=== PATIENT | female | born 1965 | race Caucasian/White ===

== ENCOUNTER 2022-01-01 15:23 | Emergency (ER) | payer BC, SELFPAY ==
--- NOTE | ~2022-01-01 | CT_ITS ---
EXAMINATION: CT brain wo con DATE: 01/01/2022 17:41 INDICATION: Facial blunt trauma . TECHNIQUE: Computed tomography (CT) of the head was performed without intravenous contrast. The mA wa s adjusted according to patient size. Iterative reconstruction technique was employed. The dose-lengt h product was 605.33 mGy-cm. COMPARISON: None FINDINGS: No acute intracranial hemorrhage or extra-axial fluid collection. No hydrocephalus, mass, or herniation. No acute ischemic infarct. Unremarkable dural venous sinus attenuation. No acute osseous abnormality. The aerated spaces are clear. IMPRESSION: No acute intracranial process. Reviewed, dictated and finalized at location K.
--- NOTE | ~2022-01-01 | CT_ITS ---
EXAMINATION: CT facial & cervical spine wo DATE: 01/01/2022 17:41 INDICATION: Blunt trauma to face TECHNIQUE: Computed tomography (CT) of the maxillofacial region and cervical spine was performed with out intravenous contrast. Automated exposure control and iterative reconstruction technique were empl oyed. The dose-length product was 159.17 mGy-cm. COMPARISON: None FINDINGS: CERVICAL: Vertebral Body Alignment: Reversal lordosis centered at C5-6. Minimal grade 1 anterolisthesis of C2 o n C3 and C4 on C5, presumably on a degenerative basis. Craniocervical and atlantoaxial alignment: Moderate degenerative change. Alignment intact. Osseous structures/fracture: No evidence of a lytic or blastic process in the visualized spine. No e vidence of acute fracture. Cervical soft tissues: The paraspinal soft tissues planes are maintained. Biapical pleural scarring. Degenerative changes: Multilevel severe degenerative disc disease and facet arthropathy. Severe centr al canal stenosis at C5-6. FACE: Soft Tissues: Mild right frontal soft tissue swelling. Facial bones: Mild asymmetry and minimal depression of the right nasal bone. No other acute fracture . No lytic or blastic process. Eyes: The globes are intact. The soft tissue planes of the orbits are maintained. Paranasal Sinuses: The visualized aerated spaces are clear. Foreign Bodies: No radiopaque foreign bodies. Other Findings: None. IMPRESSION: No acute fracture or traumatic malalignment in the cervical spine. Minimally depressed right nasal shey ne fracture. No other acute facial bone fracture detected. Reviewed, dictated and finalized at location K. IMPRESSION: No acute fracture or traumatic malalignment in the cervical spine. Minimally de pressed right nasal bone fracture. No other acute facial bone fracture detected .
[2022-01-01 15:25] VITALS: BP 144/71; PULSE 64; RESP 14; TEMP 36.4; O2SAT 100
--- NOTE | 2022-01-01 16:11 | ED.GENADULT ---
HPI - General Adult General Chief complaint: Unspecified Stated complaint: head injury, car door Time Seen by Provider: 01/01/22 15:30 Source: patient and family Mode of arrival: ambulatory Limitations: no limitations History of Present Illness HPI narrative: 56 years old white female came to the ED by ambulance with her complaining of pain at the right face after getting hit by her car door to the right face. Patient felt woozy, sees stars, and headache. Currently feeling nauseated Related Data Home Medications Medication Instructions Recorded Confirmed rosuvastatin 10 mg tablet 10 mg PO DAILY 12/27/21 12/27/21 Allergies Allergy/AdvReac Type Severity Reaction Status Date / Time Penicillins Allergy Unknown Rash Verified 01/01/22 15:29 Review of Systems Review of Systems: All systems reviewed & are unremarkable except as noted in HPI and below PMFSH Past Medical History Medical History Acid reflux Migraines Vaginal delivery Surgical History Surgical History History of appendectomy History of endometrial ablation Previous section [place] teeth removed Family History Family History Father Family history of lung cancer Hypertension Mother Family history of lung cancer Hypertension Grandparent Diabetes mellitus Social History Social History Smoking status: Never smoker Second hand tobacco smoke exposure: No Alcohol intake: current Exam Narrative: General appearance: Well-developed, well-nourished Skin: Normal color Head: Normocephalic, slight bruises to right forehead, Eyes: Clear conjunctiva, diffuse pain immediately below the level of the right eye ENT: Oropharynx normal, ears normal, slight abrasion and bruises right side of the middle of the nose, no deformity Neck: Supple, nontender Chest and respiratory: Airway patent, no respiratory distress, no accessory muscle use Heart: Regular rate/rhythm Vascular: Normal peripheral pulses, normal capillary refill. Musculoskeletal: Normal range of motion, nontender back Neurologic: Alert and oriented ?3, [employer] is normal as tested, no gross motor deficit Course Vital Signs Vital signs: Vital Signs Temperature 36.4 C 01/01/22 15:25 Pulse Rate 64 01/01/22 15:25 Respiratory Rate 14 01/01/22 15:25 Blood Pressure 144/71 H 01/01/22 15:25 Pulse Oximetry 100 01/01/22 15:25 Oxygen Delivery Room Air 01/01/22 15:25 Temperature 36.4 C 01/01/22 15:25 Pulse Rate 64 01/01/22 15:25 Respiratory Rate 14 01/01/22 15:25 Blood Pressure 144/71 H 01/01/22 15:25 Pulse Oximetry 100 01/01/22 15:25 Oxygen Delivery Room Air 01/01/22 15:25 Medical Decision Making Vital Signs Vital Signs: Vital Signs Temperature 36.4 C 01/01/22 15:25 Pulse Rate 64 01/01/22 15:25 Respiratory Rate 14 01/01/22 15:25 Blood Pressure 144/71 H 01/01/22 15:25 Pulse Oximetry 100 01/01/22 15:25 Oxygen Delivery Room Air 01/01/22 15:25 Temperature 36.4 C 01/01/22 15:25 Pulse Rate 64 01/01/22 15:25 Respiratory Rate 14 01/01/22 15:25 Blood Pressure 144/71 H 01/01/22 15:25 Pulse Oximetry 100 01/01/22 15:25 Oxygen Delivery Room Air 01/01/22 15:25 Imaging Data Radiologist's impression: Impressions Head CT 01/01/22 17:44 IMPRESSION: No acute intracranial process. Head/Cervical Spine/Facial Bones CT 01/01/22 17:52 IMPRESSION: No acute fracture or traumatic malalignment in
== END 2022-01-01 18:34 | disposition home or self-care (01) ==
PROVIDERS: Emergency Provider Emergency Medicine; PCP Registered Nurse
DX: S02.2XXA Fracture of nasal bones, initial encounter for closed fracture (principal); K21.9 Gastro-esophageal reflux disease without esophagitis; W22.8XXA Striking against or struck by other objects, initial encounter
CPT/HCPCS: 70450; 70486; 72125; 99284

== ENCOUNTER → 2022-01-30 13:45 | Outpatient (CLI) | payer BC, SELFPAY ==
--- NOTE | ~2022-01-30 | DEXA_ITS ---
Bone Density Report Name: LEONARDO MERLOS Age: 56 Sex: Female Ethnicity: White Date of : 1965 Indication: postmenopausal; screening for osteoporosis; Referring Provider: DASHAWN PARKER Study: Bone densitometry was performed. Exam Date: January 30, 2022 Accession number: [id number] Bone Density: Region BMD T-score Z-score Classification AP Spine (L1-L4) 0.992 -0.5 0.6 Normal Femoral Neck (Left) 0.817 -0.3 0.8 Normal Total Hip (Left) 0.927 -0.1 0.6 Normal Femoral Neck (Right) 0.837 -0.1 1.0 Normal Total Hip (Right) 0.941 0.0 0.7 Normal Total Hip Mean 0.934 -0.1 0.7 Normal World Health Organization criteria for BMD impression classify patients as: Normal (T-score at or above -1.0), Osteopenia (T-score between -1.0 and -2.5), or Osteoporosis (T-score at or below -2.5). 10-year Fracture Risk: FRAX not reported because: All T-scores for Spine Total, Hip Total, Femoral Neck at or above -1.0 Clinical Information Provided by Patient: Patient maximum height was 65 Menopause Age: 46 No regular weight bearing exercise Drinks caffeinated beverages Onset of menses at age 15 Number of children 2 Impression: The patient has normal bone mass. Discussion: BONE DENSITY IS ABOVE THE MINIMUM DESIRABLE LEVEL AT ALL SKELETAL SITES TESTED. This patient?s bone mineral density is above the minimum desirable level (T-score -1.0 or better) at all sites measured. The patient should follow a healthful lifestyle (good nutrition with adequate calcium and vitamin D, and appropriate weight-bearing exercise). Follow-Up: Consider repeating this study in 5 years or sooner if there is some new clinical indication. Reported by: KHUSHBU on 01/30/2022 2:08:00 PM. Reviewed, dictated and finalized at location A. [facility]
== END ==
PROVIDERS: PCP Registered Nurse; Visit Provider Obstetrics & Gynecology
DX: Z78.0 Asymptomatic menopausal state (principal)
CPT/HCPCS: 77080

== ENCOUNTER 2023-05-23 14:24 | Outpatient (CLI) | payer BC, SELFPAY ==
[2023-05-23 15:44] LABS: Alanine Aminotransferase 25 U/L (6-35); Albumin Level 4.2 g/dL (3.5-5.1); Alkaline Phosphatase 49 U/L (38-126); Aspartate Amino Transferase 27 U/L (14-36); Bilirubin,Total 0.7 mg/dL (0.2-1.3)
== END 2023-05-23 14:25 | disposition home or self-care (01) ==
LOC: ANHLAB 14:25
PROVIDERS: PCP Registered Nurse; Visit Provider Obstetrics & Gynecology
DX: N95.1 Menopausal and female climacteric states (principal)
CPT/HCPCS: 36415; 80076